=== PATIENT | male | born 1995 | race Caucasian/White ===

== ENCOUNTER → 2021-07-20 | Outpatient (CLI) | payer OTHER ==
--- NOTE | 2021-07-20 11:25 | KCIC ---
MRI thoracic spine without contrast HISTORY: Thoracic radiculopathy. Mid back pain between the scapula with radiating pain across the ant erior chest. COMPARISON: Thoracic spine x-rays July 13, 2021. FINDINGS: There is some signal loss and distortion at the craniocervical junction and thoracolumbar j unction due to the tall body stature of the patient relative to the length of the magnetic bore. This may decrease sensitivity to detect subtle abnormalities at these junctions. In light of this, the th oracic spine is well-visualized and demonstrates intact vertebral height and alignment. No bone marro w edema of the thoracic spine. Thoracic intervertebral disc hydration signal and disc height is intac t. There is no disc bulge or herniation. Thoracic spinal cord demonstrates no lesion or syrinx. Thora cic paraspinal tissues are normal. IMPRESSION: Normal exam. Electronically signed by: Lamin Beckett MD (07/20/2021 11:23 AM) [facility]
== END ==
LOC: KCIC MRI 09:22
PROVIDERS: ATTEND Physician Assistant Medical
DX: M54.6 Pain in thoracic spine (principal)
CPT/HCPCS: 72146